=== PATIENT | male | born 1985 | race American Indian/Alaskan Native ===

== ENCOUNTER 2016-11-11 06:16 | Emergency (ER) | payer MEDICAID, OTHER ==
--- NOTE | 2016-11-11 07:22 | EDM.PDOC ---
ED HPI GENERAL MEDICAL PROBLEM - General Chief Complaint: Skin Complaint Stated Complaint: FLUID BUILD-UP IN LEFT SHOULDER Time Seen by Provider: 11/11/16 07:23 - History of Present Illness INITIAL COMMENTS - FREE TEXT/NARRATIVE: HISTORY AND PHYSICAL: History of present illness: Patient 31-year-old male who is incarcerated and presents from long-term for evaluation of left shoulder pain he states he injured his shoulder and has some discomfort he's had some chronic left shoulder pain x3 months he denies any other trauma or concern. Review of systems: As per history of present illness and below otherwise all systems reviewed and negative. Past medical history: As per history of present illness and as reviewed below otherwise noncontributory. Surgical history: As per history of present illness and as reviewed below otherwise noncontributory. Social history: No reported history of drug or alcohol abuse. Family history: As per history of present illness and as reviewed below otherwise noncontributory. Physical exam: HEENT: Atraumatic, normocephalic, pupils reactive, negative for conjunctival pallor or scleral icterus, mucous membranes moist, throat clear, neck supple, nontender, trachea midline. Lungs: Clear to auscultation, breath sounds equal bilaterally, chest nontender. Heart: S1S2, regular, negative for clicks, rubs, or JVD. Abdomen: Soft, nondistended, nontender. Negative for masses or hepatosplenomegaly. Negative for costovertebral tenderness. Pelvis: Stable nontender. Genitourinary: Deferred. Rectal: Deferred. Extremities: Patient has no gross deformity of the shoulder he does have this area almost looks like a seroma patient states this initially began some minor trauma 3 months prior that he states is better for 3 months there is no erythema no warmth this appears to be superficial on evaluation he has full range of motion CMS neurovascular is unremarkable Neuro: Awake, alert, oriented. Cranial nerves II through XII unremarkable. Cerebellum unremarkable. Motor and sensory unremarkable throughout. Exam nonfocal. Diagnostics: X-ray left shoulder Therapeutics: None Impression: #1 left shoulder injury #2 seroma Definitive disposition and diagnosis as appropriate pending reevaluation and review of above. left shoulder area Pain Score (Numeric/FACES): 7 - Related Data Allergies Allergy/AdvReac Type Severity Reaction Status Date / Time No Known Allergies Allergy Verified 11/11/16 06:24 Home Meds: Home Meds . [No Known Home Meds] 01/31/14 [History] Past Medical History - Past Health History Medical/Surgical History: Denies Medical/Surgical History HEENT History: Reports: None Cardiovascular History: Reports: None Respiratory History: Reports: None Gastrointestinal History: Reports: None Genitourinary History: Reports: None Musculoskeletal History: Reports: None Neurological History: Reports: None Psychiatric History: Reports: None Endocrine/Metabolic History: Reports: None Hematologic History: Reports: None Oncologic (Cancer) History: Reports: None Dermatologic History: Reports: None - Infectious Disease History Infectious Disease History: Reports: None - Past Surgical History Head Surgeries/Procedures: Reports: None Male Surgical History: Reports: None Social & Family History - Family History Family Medical History: Noncontributory - Tobacco Use Smoking Status *Q: Former Smoker Used Tobacco, but Quit: No Second Hand Smoke Exposure: No - Caffeine Use Caffeine Use: Reports: Coffee - Alcohol Use Days Per Week of Alcohol Use: 0 - Recreational Drug Use Recreational Drug Use: Yes Drug Use in Last 12 Months: Yes Recreational Drug Type: Reports: Marijuana/Hashish ED ROS GENERAL - Review of Systems Review Of Systems: ROS reveals no pertinent complaints other than HPI. ED EXAM, SKIN/RASH Exam: See Below (See dictation) Course - Vital Signs Last Recorded V/S: Last Vital Signs Temp 36.1 C 11/11/16 06:24 Pulse 85 11/11/16 06:24 Resp 16 11/11/16 06:24 BP 117/75 11/11/16 06:24 Pulse Ox 97 11/11/16 06:24 - Orders/Labs/Meds Orders: Active Orders 24 hr Category Date Time Status Shoulder Comp Lt [CR] Stat Exams 11/11/16 06:34 Taken Departure - Departure Time of Disposition: 07:21 Disposition: Home, Self-Care 01 Condition: good Clinical Impression: Shoulder injury, Seroma, Medical clearance for incarceration - Discharge Information Forms: ED Department Discharge Additional Instructions: The following information is given to patients seen in the emergency department who are being discharged to home. This information is to outline your options for follow-up care. We provide all patients seen in our emergency department with a follow-up referral. The need for follow-up, as well as the timing and circumstances, are variable depending upon the specifics of your emergency department visit. If you don't have a primary care physician on staff, we will provide you with a referral. We always advise you to contact your personal physician following an emergency department visit to inform them of the circumstance of the visit and for follow-up with them and/or the need for any referrals to a consulting specialist. The emergency department will also refer you to a specialist when appropriate. This referral assures that you have the opportunity for followup care with a specialist. All of these measure are taken in an effort to provide you with optimal care, which includes your followup. Under all circumstances we always encourage you to contact your private physician who remains a resource for coordinating your care. When calling for followup care, please make the office aware that this follow-up is from your recent emergency room visit. If for any reason you are refused follow-up, please contact the [facility] emergency department at and asked to speak to the emergency department charge nurse. [facility] - General Surgery Professional Building [address] [place] [address], [address] [place] [address] Followup general surgery above call schedule appointment return as needed as discussed
--- NOTE | 2016-11-11 12:20 | CR ---
EXAM DATE: 11/11/16 PATIENT'S AGE: 31 Patient: TAVON MACK Facility: [place], [place] Site . Site : 1985 Study: XRay Shoulder Left [id number]/23/2017 7:06:36 AM Ordering Physician: Doctor Combs Final Report: HISTORY: Pain x 2 months, sharp pain with movement, worsening. FINDINGS: Three views of the left shoulder demonstrate maintenance the AC joint and glenohumeral joint. No soft tissue calcification, fracture or dislocation. IMPRESSION: No bony abnormality within the left shoulder. Dictated by Kyung Watkins MD @ 11/11/2016 7:10:10 AM Dictated by: Kyung Watkins MD @ 11/11/2016 07:10:14 (Electronic Signature) Report Signed by Proxy. [email or web address]
== END 2016-11-11 07:35 | disposition home or self-care (01) ==
LOC: MW.ED 06:16
DX: S40.012D Contusion of left shoulder, subsequent encounter (principal); S49.92XD Unspecified injury of left shoulder and upper arm, subsequent encounter; Z87.891 Personal history of nicotine dependence; X58.XXXD Exposure to other specified factors, subsequent encounter
CPT/HCPCS: 73030-26-LT; 73030-LT; 99282; 99283

== ENCOUNTER 2022-03-24 09:53 | Emergency (ER) | payer MEDICAID ==
[2022-03-24] MEDS ORDERED: Ondansetron 4 MG/2 ML SDV IVPUSH ONE (22:15)
[2022-04-22 08:27] LABS: CARBON DIOXIDE,CO2 26.7 mmol/L (21.0-32.0); CHLORIDE,CL 101 mmol/L (98-107); GLUCOSE RANDOM 136 mg/dL (74-106); POTASSIUM,K 3.8 mmol/L (3.5-5.1); SODIUM,NA 140 mmol/L (136-148)
[2022-04-22 08:28] LABS: BLOOD UREA NITROGEN,BUN 15 mg/dL (7.0-18.0); ESTIMATED GFR 99 mL/min (>60); LIPASE 92 U/L (73-393)
[2022-04-22 08:30] LABS: ACETAMINOPHEN < 2.0 ug/mL
== END 2022-03-25 00:25 ==
LOC: MW.ED 09:53
DX: F10.129 Alcohol abuse with intoxication, unspecified (principal)
CPT/HCPCS: 70450; 80053; 80143; 80307; 82550; 83690; 85025; 96374; 99284; J2405

== ENCOUNTER 2022-10-12 04:04 | Emergency (ER) | payer MEDICAID ==
[2022-10-12 05:30] VITALS: BP 137/89; PULSE 122
== END 2022-10-12 05:30 | disposition left against medical advice (07) ==
LOC: MW.ED 04:04
DX: S02.2XXA Fracture of nasal bones, initial encounter for closed fracture (principal); Y09 Assault by unspecified means
CPT/HCPCS: 70450; 70450-26; 70486; 70486-26; 731202650; 73120-50; 99283; 99284

== ENCOUNTER 2024-05-03 15:07 | Emergency (ER) | payer MEDICAID ==
[2024-05-03 15:52] VITALS: BP 152/100; PULSE 103
== END 2024-05-03 16:44 | disposition left against medical advice (07) ==
LOC: MW.ED 15:07
DX: Z53.21 Procedure and treatment not carried out due to patient leaving prior to being seen by health care provider (principal)

== ENCOUNTER 2025-03-04 15:26 | Emergency (ER) | payer MEDICAID ==
[2025-03-04] MEDS ORDERED: Sodium Chloride 0.9% 2.5 ML Syringe FLUSH PRN (15:46)
[2025-03-04] MEDS ORDERED: Sodium Chloride 0.9% 10 ML Syringe FLUSH PRN (15:46)
[2025-03-04] MEDS: Ketorolac 30 MG/ML SDV IVPUSH ONE (16:03)
[2025-03-04 16:14] LABS: BASOPHILS ABSOLUTE AUTO 0.02 K/uL (0.00-0.20); BASOPHILS PERCENT AUTO 0.2 % (0.0-1.0); EOSINOPHILS ABSOLUTE AUTO 0.04 K/uL (0.00-0.45); EOSINOPHILS PERCENT AUTO 0.3 % (0.0-6.0); IMMATURE GRAN ABSOLUTE AUTO 0.04 K/uL (0.00-0.05); IMMATURE GRAN PERCENT AUTO 0.3 % (0.0-0.4); LYMPHOCYTES ABSOLUTE AUTO 2.24 K/uL (1.00-4.80); LYMPHOCYTES PERCENT AUTO 19.5 % (24.0-44.0); MEAN PLATELET VOLUME 9.8 fL (9.4-12.4); MONOCYTES ABSOLUTE AUTO 1.00 K/uL (0.00-0.80); MONOCYTES PERCENT AUTO 8.7 % (0.0-8.0); NEUTROPHILS ABSOLUTE AUTO 8.16 K/uL (1.80-7.70); NEUTROPHILS PERCENT AUTO 71.0 % (41.0-71.0); NRBC ABSOLUTE 0.00 K/uL (0.00-0.02); NRBC PERCENT 0.0 /100WBC (0.0-0.2); PLATELET COUNT,PLT 204 K/uL (150-400); RED BLOOD CELL COUNT 4.82 M/uL (4.52-5.90); WHITE BLOOD CELL COUNT,WBC 11.50 K/uL (3.9-11.3)
[2025-03-04 16:36] LABS: A/G RATIO 0.9 (0.9-1.6); ALANINE AMINOTRANSFERASE,ALT 55 IU/L (14-63); ASPARTATE AMNIOTRANSFERASE,AST 32 IU/L (15-37); BILIRUBIN TOTAL 0.4 mg/dL (0.2-1.0); BLOOD UREA NITROGEN,BUN 14 mg/dL (7.0-18.0); CARBON DIOXIDE,CO2 21.9 mmol/L (21.0-32.0); CHLORIDE,CL 102 mmol/L (98-107); CREATININE 1.1 mg/dL (0.8-1.3); ESTIMATED GFR 87 mL/min (>60); GLUCOSE RANDOM 90 mg/dL (74-106); POTASSIUM,K 3.6 mmol/L (3.5-5.1); PROTEIN TOTAL,TP 7.1 g/dL (6.4-8.2); SODIUM,NA 136 mmol/L (136-148)
[2025-03-04 16:45] LABS: APPEARANCE,URINE CLEAR; GLUCOSE,URINE NEGATIVE (NEGATIVE); OCCULT BLOOD,URINE NEGATIVE (NEGATIVE)
[2025-03-04 16:53] LABS: EPITHELIAL CELLS,URINE RARE (NONE-FEW)
[2025-03-04] MEDS: Iopamidol 755 Mg/ML 100 ML Bottle IVPUSH ONE (16:54)
[2025-03-04 17:42] VITALS: BP 124/97; PULSE 90
== END 2025-03-04 17:44 | disposition home or self-care (01) ==
LOC: MW.ED 15:26
DX: R10.31 Right lower quadrant pain (principal); Z75.3 Unavailability and inaccessibility of health-care facilities; Z79.899 Other long term (current) drug therapy
CPT/HCPCS: 36415; 74177; 80053; 81001; 83690; 85025; 96361; 96374; 99284; J1885; J7030; Q9967; 99283